=== PATIENT | female | born 1945 | race Caucasian/White ===

== ENCOUNTER 2024-03-21 07:20 | Day surgery (SDC) | payer MEDICARE, OTHER ==
[2024-03-21] MEDS ORDERED: Sodium Chloride 0.9% 10 ML Syringe FLUSH PRN (07:30)
[2024-03-21] MEDS ORDERED: Propofol 200 MG/20 ML SDV ONE (07:48)
[2024-03-21] MEDS: Lactated Ringers 1,000 ML IV SCH (07:56)
[2024-03-21 09:56] VITALS: BP 111/53; PULSE 63
== END 2024-03-21 10:42 | disposition home or self-care (01) ==
LOC: LL.SDS 07:20 → MERGE 08:30 → LL.SDS 10:42
PROVIDERS: ATTEND Surgery
DX: D12.0 Benign neoplasm of cecum (principal); I10 Essential (primary) hypertension; J45.909 Unspecified asthma, uncomplicated; E78.00 Pure hypercholesterolemia, unspecified; K21.9 Gastro-esophageal reflux disease without esophagitis; I48.91 Unspecified atrial fibrillation; Z79.82 Long term (current) use of aspirin; Z79.899 Other long term (current) drug therapy; Z91.011 Allergy to milk products
CPT/HCPCS: 00813; 99100; J2704; J7120